=== PATIENT | male | born 1960 | race Caucasian/White ===

== ENCOUNTER 2019-05-15 22:40 | Inpatient (IN) | payer MEDICAID | END 2019-05-17 15:30 | disposition home or self-care (01) | LOC: ER 22:40 → TELE 22:41 → TELE-EAST 05-16 06:11 | DX: I21.4 Non-ST elevation (NSTEMI) myocardial infarction (principal); E87.6 Hypokalemia; I10 Essential (primary) hypertension; I25.2 Old myocardial infarction ==